=== PATIENT | male | born 1960 ===

== ENCOUNTER 2018-11-20 09:07 | Day surgery (SDC) | payer OTHER ==
[2018-11-19 11:49] VITALS: BMI 22.3
--- NOTE | 2018-11-20 10:22 | CP.SDSHP ---
Same Day Surgery H & P - History Proposed Procedure: colonoscopy Pre-Op Diagnosis: polyp surveillance - Previous Medical/Surgical History Comments: cholesterol Previous Surgical History: none - Allergies Allergies: Allergies SHRIMP Allergy (Uncoded 11/20/18 09:24) RASH - Current Medications Current Medications: reviewed, per reconciliation - Physical Exam General Appearance: wdwn nad Vital Signs: Vital Signs 11/20/18 09:26 Temperature 98.4 F Pulse Rate 50 L Respiratory 20 Rate Blood Pressure 118/69 O2 Sat by Pulse 98 Oximetry Mental Status: Alert & Oriented x3 Heart: WNL Lungs: WNL GI: WNL - {Optional Preform as Required} Abdomen: WNL - Impression Impression: polyp surveillance Pt. Evaluated Today:Candidate for Anesthesia & Procedure: Yes - Date & Time Date: 11/20/18 Time: 10:22 Short Stay Discharge - Short Stay Discharge Admitting Diagnosis/Reason for Visit: COLONIC POLYPS Disposition: HOME/ ROUTINE
[2018-11-20] MEDS ORDERED: Lactated Ringer's 1,000 ML IV ONE (10:25)
[2018-11-20] MEDS ORDERED: Propofol 10 mg/ml Inj (20 ML) ONE (10:27)
[2018-11-20 11:07] VITALS: TEMP 97.6
[2018-11-20 11:30] VITALS: O2SAT 100
[2018-11-20 12:33] VITALS: BP 121/67; PULSE 68; RESP 12
== END 2018-11-20 12:20 | disposition home or self-care (01) ==
LOC: C.ENDO 09:07
PROVIDERS: ATTEND Internal Medicine Gastroenterology
DX: Z12.11 Encounter for screening for malignant neoplasm of colon (principal); D12.3 Benign neoplasm of transverse colon; K57.30 Diverticulosis of large intestine without perforation or abscess without bleeding; K64.0 First degree hemorrhoids; Z87.19 Personal history of other diseases of the digestive system
CPT/HCPCS: 45380; 45385; 88305; J2001; J2704; J7120